=== PATIENT | male | born 1980 | race Caucasian/White ===

== ENCOUNTER 2021-04-24 13:32 | Outpatient (REF) | payer OTHER, SELFPAY ==
[2021-04-24 14:38] LABS: Baso%MD 0.5 %; Eos%MD 0.9 %; Hemoglobin 15.3 g/dl (14.0-18.0); IG%MD 1.2 %; Lymph%MD 36.2 %; Mean Corpuscular HGB Conc 35.6 g/dl (31.0-36.0); Mean Corpuscular Hemoglobin 32.2 pg (27.0-33.0); Mean Corpuscular Volume 90.5 fL (80-98); Mean Platelet Volume 8.9 fL (9.4-12.4); Mono%MD 9.2 %; Platelet Count 269 X10*3/uL (160-400); Red Blood Count 4.75 X10*6/uL (4.60-5.80); Red Cell Distribution Width 11.9 % (11.0-16.0); White Blood Count 6.6 X10*3/uL (4.8-10.8)
[2021-04-24 15:18] LABS: Alanine Aminotransferase 111 U/L (0-40); Albumin Level 3.9 g/dL (3.5-5.0); Alkaline Phosphatase 79 U/L (39-117); Anion Gap 11 (12-20); Aspartate Amino Transferase 30 U/L (5-37); Bilirubin Direct 0.2 mg/dL (0.0-0.5); Bilirubin Total 0.2 mg/dL (0.0-1.0); Blood Urea Nitrogen 11 mg/dL (9-16); Calcium 9.1 mg/dL (8.4-10.2); Carbon Dioxide 29 mmol/L (22-29); Chloride 105 mmol/L (96-108); Cholesterol 140 mg/dL; Estimated Glomerular Filt Rate > 60; Glucose Random 114 mg/dL (60-115); HDL Cholesterol 30 mg/dL; LDL Cholesterol Calculated 87 mg/dl; Lipase 120 U/L (8-78); Potassium 4.5 mmol/L (3.3-5.1); Sodium 140 mmol/L (135-145); Total Protein 6.3 g/dL (6.5-8.0); Triglycerides 116 mg/dL
[2021-04-24 15:21] LABS: Band Neutrophils Percent 2 % (3-5); Lymphocytes Absolute Manual 1.1 X10*3/uL (0.6-4.8); Lymphocytes Percent Manual 17 % (20-40); Monocytes Absolute Manual 0.2 X10*3/uL (0.0-1.2); Monocytes Percent Manual 3 % (2-11); Neutrophils Absolute Manual 5.3 X10*3/uL (2.2-7.9); Neutrophils Percent Manual 78 % (45-73)
[2021-04-24 15:22] LABS: Platelet Estimate NORMAL (NORMAL); Platelet Morphology Comment NORMAL; RBC Morphology NORMAL
[2021-04-24 15:29] LABS: Thyroid Stimulating Hormone 0.46 uIU/mL (0.32-4.0)
[2021-04-24 17:53] LABS: Appearance Urine CLEAR; Color Urine YELLOW; Glucose Urine UA NEG (NEG); Leukocyte Esterase Urine NEG (NEG); Nitrite Urine NEG (NEG); Urine Blood NEG (NEG); Urine Ketones NEG (NEG); Urine Protein NEG (NEG-TRACE)
== END 2021-04-24 13:33 | disposition home or self-care (01) ==
LOC: HO.LAB 13:32
PROVIDERS: Absent Provider Physician Assistant; PCP Internal Medicine; Visit Provider Internal Medicine
DX: F41.1 Generalized anxiety disorder (principal); K85.90 Acute pancreatitis without necrosis or infection, unspecified
CPT/HCPCS: 36415; 80048; 80061; 80076; 81003; 83690; 84443; 85007; 85027

== ENCOUNTER 2021-06-09 07:52 | Outpatient (REF) | payer OTHER, SELFPAY ==
--- NOTE | ~2021-06-09 | US_ITS ---
EXAMINATION: US ABDOMEN COMPLETE CLINICAL INFORMATION: Abnormal levels of other serum enzymes COMPARISON: None TECHNIQUE: Real-time imaging of the abdominal viscera. FINDINGS: PANCREAS: Not visualized due to bowel gas. ABDOMINAL AORTA: The proximal, mid, and distal segments are normal in caliber. INFERIOR VENA CAVA: Visualized portions are normal. LIVER: Normal. The liver is normal in size. The liver contour is normal. Parenchymal echogenicity is normal. No focal hepatic lesion. There is no intrahepatic biliary duct dilatation seen. GALLBLADDER: Normal. The gallbladder is physiologically distended without evidence of stones, sludge, polyps, wall thickening or pericholecystic fluid. COMMON BILE DUCT: Normal in caliber measuring 0.2 cm in diameter. RIGHT KIDNEY: There is a 1 cm cyst in the upper pole. No hydronephrosis. No renal calculi or focal parenchymal lesions. The kidney measures 11 cm in maximum dimension. LEFT KIDNEY: Normal. No hydronephrosis. No renal calculi or focal parenchymal lesions. The kidney measures 11 cm in maximum dimension. SPLEEN: Normal. The spleen measures 11 cm in maximum dimension. FREE FLUID: None. US/US abdomen complete IMPRESSION: Limited visualization of the pancreas. Small right renal cyst.
== END 2021-06-09 07:53 | disposition home or self-care (01) ==
LOC: HO.US 07:52
PROVIDERS: PCP Internal Medicine; Visit Provider Internal Medicine
DX: R74.8 Abnormal levels of other serum enzymes (principal)
CPT/HCPCS: 76700

== ENCOUNTER → 2022-04-16 13:28 | Outpatient (BNVA) | payer OTHER, SELFPAY | PROVIDERS: PCP Internal Medicine; Visit Provider Nurse Practitioner Psychiatric/Mental Health | DX: Z51.81 Encounter for therapeutic drug level monitoring (principal); F10.10 Alcohol abuse, uncomplicated | CPT/HCPCS: 80305 ==

== ENCOUNTER 2023-02-18 13:18 | Outpatient (AMB) | payer OTHER, SELFPAY ==
--- NOTE | 2023-02-18 13:29 | MHC.PC.OV ---
Vital Signs 02/18/23 13:31 Height 5 ft 9 in Weight 222 lb 8 oz BMI 32.9 BP 130/78 Blood Pressure Location Lt brachial Position Sitting Pulse 90 Pulse Source Pulse Oximeter Pulse Oximetry (%) 97 Oxygen Delivery Method Room Air Intake Visit Reasons: Bilateral Hip pain/Request lab Intake Note: Patient is here today for bilateral hip pain. Requesting for lab order New Order Clerk Required: No Ice Cream Vendor: Not Required per policy Accompanied by: Self / Same As Patient Allergies kiwi [KIWI] Allergy (Unknown, Verified 02/18/23 13:31) ANAPHYLAXIS Tobacco use date assessed: 02/18/23 Dental Screening Dental Screen Date: 02/18/23 Did you have a dental visit in the last 12 months?: Yes Did you have a dental problem in the last 6 months where you did not have access to dental care?: No Was dental information given to patient?: Patient has dentist HPI Bilateral Hip pain/Request lab HPI Details 43-year-old male presents to the office for a sick visit. Patient reports stiffness and pain in both hips. Symptoms have been present for the past 3 months. Patient is an avid gym user. He noticed that when he would have weights in his arms, his hips would start hurting. There is stiffness in both his hips with difficulty stretching. 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 He also has acne on his back for the past few months. Was seen and a dermatology office, was given a cream which he could not apply to his back. [facility] Medical History Generalized anxiety disorder Obesity (BMI 30.0-34.9) Tobacco use disorder Surgical History No pertinent past surgical history Family History Father Mental health disorder Mother Mental health disorder Social History Household Members: Spouse and Children Housing: House Alcohol intake: current Alcohol intake frequency: 0-2 drinks per day Alcohol type: beer Patient Tobacco Use Status: Former Tobacco user Tobacco use type: Cigarette Cigarettes Per Day: 4 e-Cigarette/Vaping Use: Never Used Second Hand Smoke Exposure: Yes service: No Current occupational status: employed Cognitive needs: No Hearing needs: No Vision needs: Yes (glasses) Questionnaire PHQ-9 Over the last 2 weeks, how often have you been bothered by any of the following problems? 1. Little interest or pleasure in doing things: not at all 2. Feeling down, depressed, or hopeless: not at all 3. Trouble falling or staying asleep, or sleeping too much: not at all 4. Feeling tired or having little energy: not at all 5. Poor appetite or overeating: not at all 6. Feeling bad about yourself - or that you are a failure or have let yourself or your family down: not at all 7. Trouble concentrating on things, such as reading the newspaper or watching television: not at all 8. Moving or speaking so slowly that other people could have noticed. Or the opposite - being so fidgety or restless that you have been moving around a lot more than usual: not at all 9. Thoughts that you would be better off or of hurting yourself in some way: not at all Total score: 0 Depression Screening Interpretation: Negative Source: Developed by Drs. Guicho Saavedra, Francesca Aburto, Kendrick Lai and colleagues, with an educational raymond from [employer]. Thrive Questionnaire Date Thrive assessed: 02/18/23 I am a: Patient What is your living situation today?: I have a steady place to live Within the past 12 months, did the food you bought not last and you didn't have the money to get more?: Never true Within the past 12 months, did you worry whether your food would run out before you got money to buy more?: Never true Do you have trouble paying for medicines?: No Do you have trouble getting transportation to medical appointments?: No Do you have trouble paying your heating and electricity bill?: No Do you have trouble taking care of your child, family member or friend?: No Do you have trouble with day-to-day activities such as bathing, preparing meals, shopping, managing finances, etc.?: No Are you currently unemployed and looking for a job?: No Are you interested in more education?: No Currently or been in a relationship where the following occur: no concerns reported AUDIT C Alcohol Use Questionnaire (AUDIT-C) 1. How often do you have a drink containing alcohol?: 4 or more times a week 2. How many drinks containing alcohol do you have on a typical day when you are drinking?: 1 or 2 Total Score: 4 MAHENDRA-7 AMB Questionnaire MAHENDRA-7 Date MAHENDRA - 7 assessed: 02/18/23 Feeling nervous, anxious, or on edge: 3 = Nearly every day Not being able to stop or control worryin = Several days Worrying too much about different things: 1 = Several days Trouble relaxin = Several days Being so restless that it is hard to sit still: 0 = Not at all Becoming easily annoyed or irritable: 0 = Not at all Feeling afraid as if something awful might happen: 0 = Not at all Total MAHENDRA-7 score (0-4 normal; 5-9 mild; 10-14 moderate; 15-21 severe): 6 Source: Developed by Drs. Guicho Saavedra, Francesca Aburto, Kendrick Lai and colleagues, with an educational raymond from [employer]. Physical exam (Primary Care) Vital Signs: Last Vital Signs Pulse 90 02/18/23 13:31 BP 130/78 02/18/23 13:31 Pulse Ox 97 02/18/23 13:31 Oxygen Delivery Method Room Air 02/18/23 13:31 BMI result Body Mass Index 32.9 Tobacco/Smoking Status: Tobacco use Status Tobacco use date assessed 02/18/23 02/18/23 13:36 Patient Tobacco Use Status Former Tobacco user 02/18/23 13:36 Tobacco use type Cigarette 02/18/23 13:36 e-Cigarette/Vaping Use Never Used 02/18/23 13:36 PHQ-9: PHQ-9 Score PHQ-9: Total score 0 02/18/23 13:36 Depression Screening Interpretation: Negative Thrive Assessment: Date of Thrive Assessment Date Thrive assessed 02/18/23 02/18/23 13:36 Currently or been in a relationship where the following occur: no concerns reported Const General: cooperative, healthy appearing and comfortable HENMT Head: Yes normal to inspection and Yes atraumatic Eyes General: appearance normal, both eyes and all related structures Neck Neck: Yes normal visual inspection and Yes full ROM Chest Chest palpation & inspection: normal inspection of the chest Resp Effort & Inspection: normal respiratory effort Auscultation: clear to auscultation bilaterally Cardio Jugular venous distension: no JVD Palpation: normal PMI Rate: regular rate Heart sounds: S1 normal heart sound present and S2 normal heart sound present GI Palpation (GI): Soft to palpation and No hepatosplenomegaly present Skin Other: Back cystic acne present. Extrem General: Yes normal to inspection and Yes full ROM Assessment and Plan Assessment & Plan (1) Myalgia: Code(s): M79.10 - Myalgia, unspecified site Plan: Trial of meloxicam and cyclobenzaprine called in. Physical therapy ordered. X-rays of right and left hip ordered. (2) Cystic acne: Code(s): L70.0 - Acne vulgaris Plan: Minocycline added to the regimen. Orders: Orders Complete Blood Count no Diff Today M79.10 - Myalgia, unspecified site Erythrocyte Sedimentation Rate Today M79.10 - Myalgia, unspecified site Basic Metabolic Panel Today M79.10 - Myalgia, unspecified site Lyme IgG/IgM w/reflex to WB Today M79.10 - Myalgia, unspecified site Thyroid Stimulating Hormone Today M79.10 - Myalgia, unspecified site Liver Panel Today M79.10 - Myalgia, unspecified site PT Evaluation and Treatment Today M79.10 - Myalgia, unspecified site XR hip LT min 2V Today M79.10 - Myalgia, unspecified site XR hip RT min 2V Today M79.10 - Myalgia, unspecified site Medications: New meloxicam 15 mg PO DAILY 14 tabs 0RF cyclobenzaprine 10 mg PO BEDTIME 14 tabs 0RF minocycline 100 mg PO Q12H 60 tabs 0RF Coding Level of Care Code Est Pt Level 4 (03192) Diagnoses Myalgia M79.10 Cystic acne L70.0
[2023-02-18 13:31] VITALS: BP 130/78; PULSE 90; O2SAT 97; BMI 32.9
== END 2023-02-18 13:52 | disposition home or self-care (01) ==
PROVIDERS: PCP Internal Medicine; Visit Provider Internal Medicine
DX: M79.10 Myalgia, unspecified site (principal); L70.0 Acne vulgaris
CPT/HCPCS: 99214

== ENCOUNTER 2023-02-24 07:59 | Outpatient (REF) | payer OTHER, SELFPAY ==
--- NOTE | ~2023-02-24 | XR_ITS ---
EXAMINATION: XR BILATERAL HIPS WITH AP PELVIS CLINICAL INFORMATION: Myalgia. COMPARISON: None available. TECHNIQUE: AP view of the pelvis and AP and frog-leg lateral views of each hip were obtained. FINDINGS: No acute fracture. There is a tiny accessory ossification center seen lateral to the left acetabular roof. A small benign bone island is noted within the right femoral head. Hip joint spaces are maintained. Alignment is anatomic. Sacroiliac joints and pubic symphysis are normal. No abnormal soft tissue calcifications. XR/XR hip BI w PEL1V IMPRESSION: Unremarkable pelvis and bilateral hips.
[2023-02-24 09:26] LABS: Hematocrit 42.7 % (42.0-52.0); Hemoglobin 14.9 g/dl (14.0-18.0); Mean Corpuscular HGB Conc 34.9 g/dl (31.0-36.0); Mean Corpuscular Hemoglobin 31.9 pg (27.0-33.0); Mean Corpuscular Volume 91.4 fL (80.0-98.0); Mean Platelet Volume 8.9 fL (9.4-12.4); Platelet Count 224 X10*3/uL (160-400); Red Blood Count 4.67 X10*6/uL (4.60-5.80); Red Cell Distribution Width 12.6 % (11.0-16.0)
[2023-02-24 10:05] LABS: Erythrocyte Sedimentation Rate 2 MM/HR (0-15)
[2023-02-24 11:19] LABS: Alanine Aminotransferase 22 U/L (0-40); Albumin Level 4.1 g/dL (3.5-5.0); Alkaline Phosphatase 47 U/L (39-117); Anion Gap 14 (12-20); Aspartate Amino Transferase 22 U/L (5-37); Bilirubin Direct 0.4 mg/dL (0.0-0.5); Blood Urea Nitrogen 17 mg/dL (9-16); Calcium 9.4 mg/dL (8.4-10.2); Carbon Dioxide 26 mmol/L (22-29); Chloride 108 mmol/L (96-108); Estimated Glomerular Filt Rate > 60; Glucose Random 101 mg/dL (60-115); Potassium 5.1 mmol/L (3.3-5.1); Sodium 143 mmol/L (135-145); Thyroid Stimulating Hormone 1.06 uIU/mL (0.32-4.0); Total Protein 6.5 g/dL (6.5-8.0)
[2023-02-26 03:27] LABS: Lyme Abs Screen <0.90 index
== END 2023-02-24 08:00 | disposition home or self-care (01) ==
LOC: HO.LAB 07:59
PROVIDERS: PCP Internal Medicine; Visit Provider Internal Medicine
DX: M79.10 Myalgia, unspecified site (principal)
CPT/HCPCS: 36415; 73521; 80048; 80076; 84443; 85027; 85652; 86617; 86618

== ENCOUNTER 2023-03-18 13:11 | Outpatient (AMB) | payer OTHER, SELFPAY ==
--- NOTE | 2023-03-18 13:14 | A.OFFPC_ITS ---
Vital Signs 03/18/23 13:15 Height 5 ft 9 in Weight 225 lb 4 oz BMI 33.3 BP 100/64 Blood Pressure Location Lt brachial Position Sitting Pulse 94 Pulse Source Pulse Oximeter Pulse Oximetry (%) 96 Oxygen Delivery Method Room Air Intake Visit Reasons: 4 Weeks f/u Intake Note: Patient is here to follow up on cystic acne, and myalgia. Software Quality Analyst Required: No Ab Initio Etl Developer: Not Required per policy Accompanied by: Self / Same As Patient Allergies kiwi [KIWI] Allergy (Unknown, Verified 03/18/23 13:33) ANAPHYLAXIS Medication List - Last Reconciled 03/18/23 by Sudeep Jeffery MD citalopram 20 mg PO DAILY doxycycline hyclate 100 mg PO BID 30 days meloxicam 15 mg PO DAILY Tobacco use date assessed: 03/18/23 HPI 4 Weeks f/u HPI Details 43-year-old male presents to the office for a follow-up visit. Patient is had some improvement with the stiffness in the hips. Continues to have stiffness behind the knees. He believes the cyclobenzaprine is not of much help. Meloxicam relieved the pain. Cystic acne improved with the antibiotics but new lesions are developing. [facility] Medical History Generalized anxiety disorder Obesity (BMI 30.0-34.9) Tobacco use disorder Surgical History No pertinent past surgical history Family History Father Mental health disorder Mother Mental health disorder Social History Household Members: Spouse and Children Housing: House Alcohol intake: current Alcohol intake frequency: 0-2 drinks per day Alcohol type: beer Patient Tobacco Use Status: Former Tobacco user Tobacco use type: Cigarette Cigarettes Per Day: 4 e-Cigarette/Vaping Use: Never Used Second Hand Smoke Exposure: Yes service: No Current occupational status: employed Cognitive needs: No Hearing needs: No Vision needs: Yes (glasses) Questionnaire Thrive Questionnaire Date Thrive assessed: 02/18/23 MAHENDRA-7 AMB Questionnaire MAHENDRA-7 Date MAHENDRA - 7 assessed: 02/18/23 Source: Developed by Drs. Guicho Saavedra, Francesca Aburto, Kendrick Lai and colleagues, with an educational raymond from [employer]. Physical exam (Primary Care) Vital Signs: Last Vital Signs Pulse 94 03/18/23 13:15 BP 100/64 03/18/23 13:15 Pulse Ox 96 03/18/23 13:15 Oxygen Delivery Method Room Air 03/18/23 13:15 BMI result Body Mass Index 33.3 Tobacco/Smoking Status: Tobacco use Status Tobacco use date assessed 03/18/23 03/18/23 13:21 Patient Tobacco Use Status Former Tobacco user 03/18/23 13:21 Tobacco use type Cigarette 03/18/23 13:21 e-Cigarette/Vaping Use Never Used 03/18/23 13:21 Thrive Assessment: Date of Thrive Assessment Date Thrive assessed 02/18/23 03/18/23 13:21 Const General: cooperative, healthy appearing and comfortable HENVA Head: Yes normal to inspection and Yes atraumatic Eyes General: appearance normal, both eyes and all related structures Neck Neck: Yes normal visual inspection and Yes full ROM Chest Chest palpation & inspection: normal inspection of the chest and crepitus Resp Effort & Inspection: normal respiratory effort Auscultation: clear to auscultation bilaterally Cardio Jugular venous distension: no JVD Palpation: normal PMI Rate: regular rate Heart sounds: S1 normal heart sound present and S2 normal heart sound present GI Palpation (GI): Soft to palpation, Tenderness to palpation present (GI) and No hepatosplenomegaly present Skin Other: Back: Most of the acne lesions are fading. New erythematous nodular lesions developing. Extrem General: Yes normal to inspection and Yes full ROM Assessment and Plan Assessment & Plan (1) Cystic acne: Code(s): L70.0 - Acne vulgaris Plan: Continue the antibiotics. A dermatology appointment will be requested. He will be a candidate for Accutane. (2) Bilateral hip pain: Code(s): M25.551 - Pain in right hip; M25.552 - Pain in left hip Plan: Physical therapy will be requested. Coding Level of Care Code Est Pt Level 4 (56253) Diagnoses Cystic acne L70.0 Bilateral hip pain M25.551; M25.552
[2023-03-18 13:15] VITALS: BP 100/64; PULSE 94; O2SAT 96; BMI 33.3
== END 2023-03-18 15:51 | disposition home or self-care (01) ==
PROVIDERS: PCP Internal Medicine; Visit Provider Internal Medicine
DX: L70.0 Acne vulgaris (principal); M25.551 Pain in right hip; M25.552 Pain in left hip
CPT/HCPCS: 99214

== ENCOUNTER 2023-09-18 10:17 | Emergency (ER) | payer OTHER, SELFPAY ==
[2023-09-18 10:23] VITALS: BP 107/71; PULSE 80; RESP 18; TEMP 36.6; O2SAT 98; BMI 32.5
--- NOTE | 2023-09-18 10:59 | ED.BACK ---
HPI - Back Pain/Injury General Chief Complaint: Back Pain/Injury Stated Complaint: back pain Time Seen by Provider: 09/18/23 10:37 Source: patient Mode of arrival: ambulatory Limitations: no limitations History of Present Illness HPI Narrative: 43-year-old male with no known medical history presents to the ER with complaints of right lower back pain with radiation down the right leg for the last 2 days. Patient denies any known falls or injuries but does recall lifting or cycling been which was empty prior to the pain beginning. Denies any associated numbness or tingling of the extremity. No numbness in the groin. No bowel or bladder incontinence. No fevers or chills. He is taking ibuprofen and using heat with continued symptoms Related Data Previous Rx's Medication Instructions Recorded citalopram 20 mg tablet 20 mg PO DAILY #60 tabs 09/18/22 meloxicam 15 mg tablet 15 mg PO DAILY #14 tabs 02/18/23 doxycycline hyclate 100 mg capsule 100 mg PO BID 30 days #60 caps 02/22/23 cyclobenzaprine 10 mg tablet 10 mg PO TID PRN muscle spasm #15 09/18/23 tabs lidocaine 5 % topical patch 1 patch topical DAILY #15 ea 09/18/23 (Lidoderm) prednisone 20 mg tablet 40 mg (2 x 20 mg) PO DAILY #10 tabs 09/18/23 Allergies Allergy/AdvReac Type Severity Reaction Status Date / Time kiwi [KIWI] Allergy Unknown ANAPHYLAXIS Verified 09/18/23 10:22 Review of Systems Review of Systems: Yes all other systems are reviewed and are negative Constitutional: Constitutional: Reports no additional constitutional complaints, Denies body ache(s), Denies chills, Denies fever(s), Denies headache(s) and Denies weakness Eyes: Eyes: Reports no additional eye complaints and Denies change in vision ENT: Reports system reviewed and no additional complaints, except as documented, Denies dizziness, Denies headache(s), Denies nasal congestion, Denies nasal discharge and Denies neck pain Cardiovascular: Cardiovascular: Reports no additional cardiovascular complaints, Denies chest pain, Denies leg edema and Denies dyspnea Respiratory: Respiratory: Reports no additional respiratory complaints, Denies cough and Denies dyspnea Gastrointestinal: Gastrointestinal: Reports no additional gastrointestinal complaints, Denies abdominal pain, Denies diarrhea, Denies nausea and Denies vomiting Genitourinary: Genitourinary: Denies urinary incontinence Musculoskeletal: Musculoskeletal: Reports no additional musculoskeletal complaints, Reports back pain, Denies arthralgias, Denies joint swelling, Denies neck pain, Denies numbness and Denies tingling Integumentary/Breasts: Skin/Breast: Reports system reviewed and no additional complaints, except as docu and Denies rash Neurologic: Reports system reviewed and no additional complaints, except as documented, Denies Abnormal speech present, Denies dizziness, Denies headache(s), Denies numbness, Denies tingling and Denies weakness PMFSH Past Medical History Attestation statement: The following information was validated with the patient. Source: old records reviewed and nursing notes reviewed Medical History Obesity (BMI 30.0-34.9) Tobacco use disorder Generalized anxiety disorder Surgical History No pertinent past surgical history Family History Family History Father Mental health disorder Mother Mental health disorder Social History Social History Household Members: Spouse and Children Housing: House Alcohol intake: current Alcohol intake frequency: 0-2 drinks per day Alcohol type: beer Patient Tobacco Use Status: Former Tobacco user Tobacco use type: Cigarette Cigarettes Per Day: 4 e-Cigarette/Vaping Use: Never Used Second Hand Smoke Exposure: Yes Advance Directives: No Advance Directives Information Provided: No service: No Current occupational status: employed Cognitive needs: No Hearing needs: No Vision needs: Yes (glasses) Physical Exam Vital Signs: Vital Signs: Last Vital Signs Temp 97.9 F 09/18/23 10:23 Pulse 80 09/18/23 10:23 Resp 18 09/18/23 10:23 BP 107/71 09/18/23 10:23 Pulse Ox 98 09/18/23 10:23 O2 Del Method Room Air 09/18/23 10:23 BMI result Body Mass Index 32.5 Const: General: cooperative, healthy appearing, comfortable and no acute distress Orientation/consciousness: patient oriented x3 Limitations: no limitations HEENT: Head: Yes normal to inspection Ears: hearing grossly normal bilaterally General nose exam: Normal external nose present Face and sinus: Yes normal facial exam Mouth: Normal oral and palatal mucosa present Throat: Yes posterior oropharynx normal Eyes: General: appearance normal, both eyes and all related structures Pupils: Equal, round and reactive pupils present Neck: Neck: Yes normal visual inspection Chest: Chest palpation & inspection: normal inspection of the chest Resp: Effort & Inspection: normal respiratory effort Auscultation: clear to auscultation bilaterally Cardio: Rate: regular rate Rhythm: regular rhythm Peripheral pulses: Peripheral pulses 2+ throughout GI: Inspection: Yes normal to inspection Palpation (GI): Soft to palpation and nontender Auscultation: normal bowel sounds Back/Spine/Pelvis: Other: there is no midline tenderness. There is tenderness the lumbar soft tissue on the right side which is worsened with flexion and extension of the lumbar spine Thoracic/Lumbar Spine: thoracic and lumbar spine normal to inspection Skin: General skin exam: no rashes or lesions noted Neuro: General: patient oriented x3, moves all extremities, no focal motor deficits and normal sensation to monofilament Cranial nerves: Yes Equal, round and reactive pupils present Cognition (Neuro): normal cognition Speech: No Abnormal speech present Gait exam (Neuro): Normal gait present Motor exam (neuro): 5/5 motor strength present throughout Sensory Exam: Normal double simultaneous stimulation for sensation Deep tendon reflexes (DTR's): Right patellar reflex intensity grade: 2+ and Left patellar reflex intensity grade: 2+ Extrem: General: Yes normal to inspection Medical Decision Making Medical Decision Making MDM Narrative: 43-year-old male with no known medical history presents to the ER with complaints of right lower back pain with radiation down the right leg for the last 2 days. Patient denies any known falls or injuries but does recall lifting or cycling been which was empty prior to the pain beginning. Denies any associated numbness or tingling of the extremity. No numbness in the groin. No bowel or bladder incontinence. No fevers or chills. He is taking ibuprofen and using heat with continued symptoms normal neuro exam with no focal neurological deficits or red flag symptoms Will treat with recommendations to continue NSAIDs, muscle relaxants, medicated patches and prednisone Differential Diagnosis Differential Diagnoses: The differential diagnosis associated with the presentation includes lumbar radiculopathy low suspicion for fracture, malignancy, cord compression, cauda equina, epidural abscess Admission/Observation Consideration of admission/observation: Escalation of care including admission/observation considered low suspicion for fracture, malignancy, cord compression, cauda equina, epidural abscess requiring urgent imaging, neurosurgery consultation Tests considered The following testing was considered but not selected: low suspicion for fracture, malignancy, cord compression, cauda equina, epidural abscess requiring urgent imaging Prescription Management I considered prescription management with: Pain Medication Discharge Plan Discharge Clinical Impression: Lumbar radiculopathy Patient Disposition: Home, Self-Care Instructions: Lumbar Radiculopathy (ED) Additional Instructions: heat or ice Gentle stretching No heavy lifting or bending Continue ibuprofen If having continued symptoms after 5-7 days I would recommend that you follow up outpatient with primary care doctor Return for any incontinence of urine or stool, numbness in the groin, fevers or chills Prescriptions: New prednisone 20 mg tablet 40 mg PO DAILY Qty: 10 0RF cyclobenzaprine 10 mg tablet 10 mg PO TID PRN (Reason: muscle spasm) Qty: 15 0RF lidocaine [Lidoderm] 5 % adhesive patch,medicated 1 patch topical DAILY Qty: 15 0RF Rx Instructions: leave on most painful area for up to 12 hrs No Action citalopram 20 mg tablet 20 mg PO DAILY Qty: 60 0RF doxycycline hyclate 100 mg capsule 100 mg PO BID 30 Days Qty: 60 0RF meloxicam 15 mg tablet 15 mg PO DAILY Qty: 14 0RF Referrals: Sudeep Jeffery MD [Primary Care Provider] - 1 week Stand Alone Forms: Work/School Release
== END 2023-09-18 11:25 | disposition home or self-care (01) ==
PROVIDERS: Emergency Provider Emergency Medicine; PCP Internal Medicine
DX: M54.16 Radiculopathy, lumbar region (principal); M54.50 Low back pain, unspecified
CPT/HCPCS: 99283

== ENCOUNTER 2023-11-23 10:06 | Outpatient (AMB) | payer OTHER, SELFPAY ==
--- NOTE | 2023-11-23 10:43 | MHC.PC.OV ---
Vital Signs 11/23/23 10:46 Height 5 ft 9 in Weight 228 lb BMI 33.7 BP 124/72 Blood Pressure Location Rt brachial Position Sitting Pulse 73 Pulse Source Pulse Oximeter Pulse Oximetry (%) 97 Oxygen Delivery Method Room Air Intake Visit Reasons: ED Intake Note: Patient is here to follow up on ED. 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 per policy Accompanied by: Self / Same As Patient Allergies kiwi [KIWI] Allergy (Unknown, Verified 11/24/23 08:40) ANAPHYLAXIS Medication List - Last Reconciled 11/24/23 by Sudeep Jeffery MD citalopram 20 mg PO DAILY lidocaine 5% (Lidoderm) 1 patch topical DAILY sildenafil (Viagra) 50 mg PO DAILY PRN Tobacco use date assessed: 11/23/23 Dental Screening Dental Screen Date: 11/23/23 Did you have a dental visit in the last 12 months?: Yes Did you have a dental problem in the last 6 months where you did not have access to dental care?: No Was dental information given to patient?: Patient has dentist HPI ED HPI Details 43 yr old male presents to the office to discuss his medical condition. He is experiencing erectile dysfunction. Unable to maintain erections over longer duration. , heterosexual, single partner, does not use protection. No recent stresses. Good interpersonal relationships with his . Once a month sexual activity. Saw the manager car for cystic Acne. Does not like the topical preparations provided by them. Wants systemic therapy and would like to get a referral elsewhere. Depression symptoms are stable [facility] Medical History (Updated 11/24/23 @ 08:45 by Sudeep Jeffery MD) Cystic acne Obesity (BMI 30.0-34.9) Tobacco use disorder Generalized anxiety disorder Surgical History No pertinent past surgical history Family History Father Mental health disorder Mother Mental health disorder Social History Household Members: Spouse and Children Housing: House Alcohol intake: current Alcohol intake frequency: a few times a week Alcohol type: beer Patient Tobacco Use Status: Former Tobacco user Tobacco use type: Cigarette Cigarettes Per Day: 4 e-Cigarette/Vaping Use: Never Used Second Hand Smoke Exposure: Yes service: No Current occupational status: employed Cognitive needs: No Hearing needs: No Vision needs: Yes (glasses) Questionnaire PHQ-9 Over the last 2 weeks, how often have you been bothered by any of the following problems? 1. Little interest or pleasure in doing things: not at all 2. Feeling down, depressed, or hopeless: not at all 3. Trouble falling or staying asleep, or sleeping too much: not at all 4. Feeling tired or having little energy: not at all 5. Poor appetite or overeating: not at all 6. Feeling bad about yourself - or that you are a failure or have let yourself or your family down: not at all 7. Trouble concentrating on things, such as reading the newspaper or watching television: not at all 8. Moving or speaking so slowly that other people could have noticed. Or the opposite - being so fidgety or restless that you have been moving around a lot more than usual: not at all 9. Thoughts that you would be better off or of hurting yourself in some way: not at all Total score: 0 Depression Screening Interpretation: Negative Depression Screening Done: Yes Source: Developed by Drs. Guihco Saavedra, Francesca Aburto, Kendrick Lai and colleagues, with an educational raymond from [employer]. Thrive Questionnaire Date Thrive assessed: 11/23/23 I am a: Patient What is your living situation today?: I have a steady place to live Within the past 12 months, did the food you bought not last and you didn't have the money to get more?: Never true Within the past 12 months, did you worry whether your food would run out before you got money to buy more?: Never true Do you have trouble paying for medicines?: No Do you have trouble getting transportation to medical appointments?: No Do you have trouble paying your heating and electricity bill?: No Do you have trouble taking care of your child, family member or friend?: No Do you have trouble with day-to-day activities such as bathing, preparing meals, shopping, managing finances, etc.?: No Are you currently unemployed and looking for a job?: No Are you interested in more education?: No Currently or been in a relationship where the following occur: no concerns reported THRIVE Score: 0 AUDIT C Alcohol Use Questionnaire (AUDIT-C) 1. How often do you have a drink containing alcohol?: 2-3 times a week 2. How many drinks containing alcohol do you have on a typical day when you are drinking?: 1 or 2 Total Score: 3 MAHENDRA-7 AMB Questionnaire MAHENDRA-7 Date MAHENDRA - 7 assessed: 11/23/23 Feeling nervous, anxious, or on edge: 0 = Not at all Not being able to stop or control worryin = Not at all Worrying too much about different things: 0 = Not at all Trouble relaxin = Not at all Being so restless that it is hard to sit still: 0 = Not at all Becoming easily annoyed or irritable: 0 = Not at all Feeling afraid as if something awful might happen: 0 = Not at all Total MAHENDRA-7 score (0-4 normal; 5-9 mild; 10-14 moderate; 15-21 severe): 0 Source: Developed by Drs. Guicho Saavedra, Francesca Aburto, Kendrick Lai and colleagues, with an educational raymond from [employer]. Physical exam (Primary Care) Vital Signs: Last Vital Signs Pulse 73 11/23/23 10:46 BP 124/72 11/23/23 10:46 Pulse Ox 97 11/23/23 10:46 Oxygen Delivery Method Room Air 11/23/23 10:46 BMI result Body Mass Index 33.7 BMI Assessment/Plan discussion: High (one pound per week weight loss suggested.) BMI High, discussed plan: lifestyle, weight reduction, dietary and physical activity Tobacco/Smoking Status: Tobacco use Status Tobacco use date assessed 11/23/23 11/23/23 10:54 Patient Tobacco Use Status Former Tobacco user 11/23/23 10:54 Tobacco use type Cigarette 11/23/23 10:54 e-Cigarette/Vaping Use Never Used 11/23/23 10:54 PHQ-9: PHQ-9 Score PHQ-9: Total score 0 11/23/23 10:54 Depression Screening Interpretation: Negative Thrive Assessment: Date of Thrive Assessment Date Thrive assessed 11/23/23 11/23/23 10:54 Currently or been in a relationship where the following occur: no concerns reported Const General: cooperative and healthy appearing Nutritional Appearance: well nourished Orientation/consciousness: patient oriented x3 Limitations: no limitations HENMT Head: Yes normal to inspection Eyes General: appearance normal, both eyes and all related structures Neck Neck: Yes normal visual inspection Chest Chest palpation & inspection: normal palpation of entire chest wall Resp Effort & Inspection: normal respiratory effort Neuro General: patient oriented x3 Assessment and Plan Assessment & Plan (1) Cystic acne: Code(s): L70.0 - Acne vulgaris Plan: A new dermatology appt requested. (2) Generalized anxiety disorder: Code(s): F41.1 - Generalized anxiety disorder Plan: Continue the SSRI. (3) Erectile dysfunction: Code(s): N52.9 - Male erectile dysfunction, unspecified Plan: Viagra added to the regimen Medications: New sildenafil (Viagra) administer 30 minutes to 4 hours before activity 50 mg PO DAILY PRN 8 tabs 0RF sexual activity Coding Level of Care Code Est Pt Level 4 (13538) Diagnoses Cystic acne L70.0 Generalized anxiety disorder F41.1 Erectile dysfunction N52.9
[2023-11-23 10:46] VITALS: BP 124/72; PULSE 73; O2SAT 97; BMI 33.7
== END 2023-11-23 13:53 | disposition home or self-care (01) ==
PROVIDERS: PCP Internal Medicine; Visit Provider Internal Medicine
DX: L70.0 Acne vulgaris (principal); F41.1 Generalized anxiety disorder; N52.9 Male erectile dysfunction, unspecified
CPT/HCPCS: 99214

== ENCOUNTER 2024-04-24 08:14 | Outpatient (AMB) | payer OTHER, SELFPAY ==
[2024-04-24 08:17] VITALS: BP 118/78; PULSE 96; O2SAT 97; BMI 34.1
--- NOTE | 2024-04-24 08:17 | MHC.PC.OV ---
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: No Accompanied by: Self / Same As Patient Allergies kiwi [KIWI] Allergy (Unknown, Verified 04/24/24 09:12) ANAPHYLAXIS Medication List - Last Reconciled 04/24/24 by Sudeep Jeffery MD citalopram 20 mg PO DAILY lidocaine 5% (Lidoderm) 1 patch topical DAILY sildenafil (Viagra) 50 mg PO DAILY PRN Tobacco use date assessed: 11/23/23 Dental Screening Dental Screen Date: 11/23/23 [facility] Medical History (Updated 11/24/23 @ 08:45 by Sudeep Jeffery MD) Cystic acne Obesity (BMI 30.0-34.9) Tobacco use disorder Generalized anxiety disorder Surgical History No pertinent past surgical history Family History Father Mental health disorder Mother Mental health disorder Social History Household Members: Spouse and Children Housing: House Alcohol intake: current Alcohol intake frequency: a few times a week Alcohol type: beer Patient Tobacco Use Status: Former Tobacco user Tobacco use type: Cigarette Cigarettes Per Day: 4 e-Cigarette/Vaping Use: Never Used Second Hand Smoke Exposure: Yes service: No Current occupational status: employed Current occupational exposures/hazards: No Cognitive needs: No Hearing needs: No Vision needs: Yes (glasses) Questionnaire PHQ-9 Over the last 2 weeks, how often have you been bothered by any of the following problems? 1. Little interest or pleasure in doing things: not at all 2. Feeling down, depressed, or hopeless: not at all 3. Trouble falling or staying asleep, or sleeping too much: not at all 4. Feeling tired or having little energy: not at all 5. Poor appetite or overeating: not at all 6. Feeling bad about yourself - or that you are a failure or have let yourself or your family down: not at all 7. Trouble concentrating on things, such as reading the newspaper or watching television: several days 8. Moving or speaking so slowly that other people could have noticed. Or the opposite - being so fidgety or restless that you have been moving around a lot more than usual: not at all 9. Thoughts that you would be better off or of hurting yourself in some way: not at all Total score: 1 Depression Screening Interpretation: Negative Depression Screening Done: Yes Source: Developed by Drs. Guicho Saavedra, Francesca Aburto, Kendrick Lai and colleagues, with an educational raymond from [employer]. Thrive Questionnaire Date Thrive assessed: 11/23/23 I am a: Patient What is your living situation today?: I have a steady place to live Within the past 12 months, did the food you bought not last and you didn't have the money to get more?: I choose not to answer this question Within the past 12 months, did you worry whether your food would run out before you got money to buy more?: Never true Do you have trouble paying for medicines?: No Do you have trouble getting transportation to medical appointments?: No Do you have trouble paying your heating and electricity bill?: No Do you have trouble taking care of your child, family member or friend?: No Do you have trouble with day-to-day activities such as bathing, preparing meals, shopping, managing finances, etc.?: No Are you currently unemployed and looking for a job?: No Are you interested in more education?: No Please select the resources that you would like help with: None Currently or been in a relationship where the following occur: No concerns reported THRIVE Score: 0 AUDIT C Alcohol Use Questionnaire (AUDIT-C) 1. How often do you have a drink containing alcohol?: Monthly or less 2. How many drinks containing alcohol do you have on a typical day when you are drinking?: 1 or 2 3. How often do you have six or more drinks on one occasion?: Less than monthly Total Score: 2 MAHENDRA-7 AMB Questionnaire MAHENDRA-7 Date MAHENDRA - 7 assessed: 11/23/23 Feeling nervous, anxious, or on edge: 1 = Several days Not being able to stop or control worryin = Not at all Worrying too much about different things: 0 = Not at all Trouble relaxin = Not at all Being so restless that it is hard to sit still: 0 = Not at all Becoming easily annoyed or irritable: 0 = Not at all Feeling afraid as if something awful might happen: 0 = Not at all Total MAHENDRA-7 score (0-4 normal; 5-9 mild; 10-14 moderate; 15-21 severe): 1 Source: Developed by Drs. Guicho Saavedra, Francesca Aburto, Kendrick Lai and colleagues, with an educational raymond from [employer]. Physical exam (Primary Care) Vital Signs: Last Vital Signs Pulse 96 04/24/24 08:17 BP 118/78 04/24/24 08:17 Pulse Ox 97 04/24/24 08:17 Oxygen Delivery Method Room Air 04/24/24 08:17 Care Plan Goal for BP management: Blood pressure is in range. BMI result Body Mass Index 34.1 BMI Assessment/Plan discussion: High (1 lb per week weight loss suggested.) BMI High, discussed plan: lifestyle, weight reduction and dietary Tobacco/Smoking Status: Tobacco use Status Tobacco use date assessed 11/23/23 04/24/24 08:24 Patient Tobacco Use Status Former Tobacco user 04/24/24 08:24 Tobacco use type Cigarette 04/24/24 08:24 e-Cigarette/Vaping Use Never Used 04/24/24 08:24 PHQ-9: PHQ-9 Score PHQ-9: Total score 1 04/24/24 08:24 Depression Screening Interpretation: Negative Thrive Assessment: Date of Thrive Assessment Date Thrive assessed 11/23/23 04/24/24 08:24 Currently or been in a relationship where the following occur: No concerns reported Const General: cooperative and healthy appearing Nutritional Appearance: well nourished Orientation/consciousness: patient oriented x3 Limitations: no limitations HENMT Head: Yes normal to inspection Eyes General: appearance normal, both eyes and all related structures Neck Neck: Yes normal visual inspection Chest Chest palpation & inspection: normal palpation of entire chest wall Resp Effort & Inspection: normal respiratory effort Back/Spine/Pelvis Other: Skin: Healing acne lesions. Neuro General: patient oriented x3 Assessment and Plan Assessment & Plan (1) Cystic acne: Code(s): L70.0 - Acne vulgaris Plan: Patient did not keep the earlier appointment due to insurance issues. He would like to get another dermatology appointment. The same has been made. (2) Generalized anxiety disorder: Code(s): F41.1 - Generalized anxiety disorder Plan: Patient has not been regular with citalopram. Compliance has been urged. (3) Annual physical exam: Code(s): Z00.00 - Encounter for general adult medical examination without abnormal findings Plan: Blood work has been ordered. Will call with the results. Orders: Orders Complete Blood Count no Diff Today F41.1 - Generalized anxiety disorder, L70.0 - Acne vulgaris, Z00.00 - Encounter for general adult medical examination without abnormal findings Thyroid Stimulating Hormone Today F41.1 - Generalized anxiety disorder, L70.0 - Acne vulgaris, Z00.00 - Encounter for general adult medical examination without abnormal findings UA and rflx microscopic Today F41.1 - Generalized anxiety disorder, L70.0 - Acne vulgaris, Z00.00 - Encounter for general adult medical examination without abnormal findings Basic Metabolic Panel Today F41.1 - Generalized anxiety disorder, L70.0 - Acne vulgaris, Z00.00 - Encounter for general adult medical examination without abnormal findings Lipid Panel Today F41.1 - Generalized anxiety disorder, L70.0 - Acne vulgaris, Z00.00 - Encounter for general adult medical examination without abnormal findings Liver Panel Today F41.1 - Generalized anxiety disorder, L70.0 - Acne vulgaris, Z00.00 - Encounter for general adult medical examination without abnormal findings Referrals Dermatology Referral L70.0 - Acne vulgaris Medications: Refilled citalopram 20 mg PO DAILY 90 tabs 1RF Coding Level of Care Code Est Pt Prev Care 40-64y(69312) Diagnoses Cystic acne L70.0 Generalized anxiety disorder F41.1 Annual physical exam Z00.00
== END 2024-04-24 08:42 | disposition home or self-care (01) ==
PROVIDERS: PCP Internal Medicine; Visit Provider Internal Medicine
DX: L70.0 Acne vulgaris (principal); F41.1 Generalized anxiety disorder; Z00.00 Encounter for general adult medical examination without abnormal findings

== ENCOUNTER → 2024-04-24 08:14 | Outpatient (BNVA) | payer OTHER, SELFPAY | PROVIDERS: PCP Internal Medicine; Visit Provider Internal Medicine | DX: Z00.00 Encounter for general adult medical examination without abnormal findings (principal); L70.0 Acne vulgaris; F41.1 Generalized anxiety disorder | CPT/HCPCS: 96127 ==

== ENCOUNTER 2024-05-31 06:37 | Outpatient (REF) | payer OTHER, SELFPAY ==
[2024-05-31 07:46] LABS: Hematocrit 43.3 % (42.0-52.0); Hemoglobin 15.5 g/dl (14.0-18.0); Mean Corpuscular HGB Conc 35.8 g/dl (31.0-36.0); Mean Corpuscular Volume 89.5 fL (80.0-98.0); Platelet Count 220 X10*3/uL (160-400); Red Blood Count 4.84 X10*6/uL (4.60-5.80); Red Cell Distribution Width 12.6 % (11.0-16.0); White Blood Count 6.2 X10*3/uL (4.8-10.8)
[2024-05-31 08:01] LABS: Appearance Urine Clear; Color Urine Yellow; Glucose Urine UA Negative (Negative); Leukocyte Esterase Urine Negative (Negative); Nitrite Urine Negative (Negative); PH 5.5 (5.0-9.0); Specific Gravity - Urine 1.025 (1.005-1.025); Urine Blood Negative (Negative); Urine Ketones Negative (Negative); Urine Protein Negative (Neg-Trace)
[2024-05-31 08:18] LABS: Alanine Aminotransferase 29 U/L (0-40); Alkaline Phosphatase 47 U/L (39-117); Anion Gap 11 (12-20); Aspartate Amino Transferase 27 U/L (5-37); Bilirubin Direct 0.2 mg/dL (0.0-0.5); Bilirubin Total 0.7 mg/dL (0.0-1.0); Blood Urea Nitrogen 16 mg/dL (9-16); Calcium 9.1 mg/dL (8.4-10.2); Carbon Dioxide 25 mmol/L (22-29); Chloride 108 mmol/L (96-108); Cholesterol 155 mg/dL (<200); Estimated Glomerular Filt Rate > 60; Glucose Random 101 mg/dL (60-115); HDL Cholesterol 50 mg/dL (>40); LDL Cholesterol Calculated 88 mg/dL (<100); Sodium 140 mmol/L (135-145); Total Protein 6.4 g/dL (6.5-8.0); Triglycerides 85 mg/dL (<150)
[2024-05-31 08:38] LABS: Thyroid Stimulating Hormone 1.52 uIU/mL (0.32-4.0)
== END 2024-05-31 06:38 | disposition home or self-care (01) ==
LOC: HO.LAB 06:37
PROVIDERS: PCP Internal Medicine; Visit Provider Internal Medicine
DX: Z00.00 Encounter for general adult medical examination without abnormal findings (principal); L70.0 Acne vulgaris; F41.1 Generalized anxiety disorder
CPT/HCPCS: 36415; 80048; 80061; 80076; 81003; 84443; 85027

== ENCOUNTER 2024-06-12 09:13 | Outpatient (REF) | payer OTHER, SELFPAY ==
[2024-06-13 08:58] LABS: Follicle Stimulating Hormone 3.5 mIU/mL (1.4-12.8); Lutenizing Hormone 3.3 mIU/mL (1.5-9.3)
[2024-06-16 18:23] LABS: Testosterone, Free 63.8 pg/mL (35.0-155.0); Testosterone, Total 456 ng/dL (250-1100)
== END 2024-06-12 09:14 | disposition home or self-care (01) ==
LOC: HO.LAB 09:13
PROVIDERS: PCP Internal Medicine; Visit Provider Internal Medicine
DX: E29.1 Testicular hypofunction (principal)
CPT/HCPCS: 36415; 83001; 83002; 84402; 84403

== ENCOUNTER 2024-10-20 11:08 | Outpatient (REF) | payer OTHER, SELFPAY ==
[2024-10-20 12:14] LABS: MANUAL DIFF FLAG NO
[2024-10-20 12:28] LABS: Basophils Percent Auto 0.8 % (0-2); Eosinophils Percent Auto 0.6 % (0-4); Hematocrit 41.9 % (42.0-52.0); Hemoglobin 14.8 g/dl (14.0-18.0); Imm Gran Abs Auto 0.01 X10*3/uL (0.00-0.03); Imm Gran Pct Auto 0.2 % (0.0-0.4); Lymphocytes Absolute Auto 1.7 X10*3/uL (1.2-4.9); Lymphocytes Percent Auto 33.7 % (20-40); Mean Corpuscular HGB Conc 35.3 g/dl (31.0-36.0); Mean Corpuscular Hemoglobin 32.2 pg (27.0-33.0); Mean Corpuscular Volume 91.3 fL (80.0-98.0); Mean Platelet Volume 9.1 fL (9.4-12.4); Monocytes Absolute Auto 0.5 X10*3/uL (0.1-1.2); Monocytes Percent Auto 10.2 % (2-11); Neutrophils Absolute Auto 2.7 x10*3/uL (2.0-8.3); Neutrophils Percent Auto 54.5 % (45-73); Platelet Count 217 X10*3/uL (160-400); Red Blood Count 4.59 X10*6/uL (4.60-5.80); Red Cell Distribution Width 12.7 % (11.0-16.0)
[2024-10-20 12:43] LABS: Estimated Average Glucose 105 mg/dL; Hemoglobin A1c % 5.3 % (<6.0); Total Hemoglobin (HGBA1C) 3835.3638 umol/L
[2024-10-20 13:06] LABS: Erythrocyte Sedimentation Rate 2 MM/HR (0-15)
[2024-10-20 13:07] LABS: Alanine Aminotransferase 34 U/L (0-40); Albumin Level 4.2 g/dL (3.5-5.0); Alkaline Phosphatase 39 U/L (39-117); Anion Gap 7 (12-20); Aspartate Amino Transferase 32 U/L (5-37); Bilirubin Direct 0.2 mg/dL (0.0-0.5); Bilirubin Total 0.4 mg/dL (0.0-1.0); Blood Urea Nitrogen 14 mg/dL (9-16); C Reactive Protein < 0.04 mg/dL (< or = 0.50); Calcium 9.3 mg/dL (8.4-10.2); Carbon Dioxide 30 mmol/L (22-29); Chloride 107 mmol/L (96-108); Estimated Glomerular Filt Rate > 60; Glucose Random 100 mg/dL (60-115); Magnesium 1.8 mg/dL (1.6-2.6); Potassium 4.4 mmol/L (3.3-5.1); Sodium 140 mmol/L (135-145); Total Protein 6.5 g/dL (6.5-8.0)
[2024-10-20 13:12] LABS: TSH reflex Free T4 1.39 uIU/mL (0.32-4.0); Vitamin D 25-OH Total 27.1 ng/mL (>30)
[2024-10-20 13:27] LABS: Folate 9.5 ng/mL (> or = 4.0); Vitamin B12 494 pg/mL (200-900)
== END 2024-10-20 11:09 | disposition home or self-care (01) ==
LOC: HO.LAB 11:08
PROVIDERS: PCP Internal Medicine; Visit Provider Physician Assistant Medical
DX: R19.7 Diarrhea, unspecified (principal); Z76.0 Encounter for issue of repeat prescription; Z00.00 Encounter for general adult medical examination without abnormal findings; Z13.1 Encounter for screening for diabetes mellitus
CPT/HCPCS: 36415; 80053; 82248; 82306; 82607; 82746; 83036; 83735; 84443; 85025; 85652; 86140; 96127

== ENCOUNTER 2024-10-20 11:08 | Outpatient (AMB) | payer OTHER, SELFPAY ==
--- NOTE | 2024-10-20 11:20 | A.OFFPC_ITS ---
Vital Signs 10/20/24 11:22 Height 5 ft 9 in Weight 227 lb 4 oz BMI 33.6 BP 120/70 Blood Pressure Location Lt brachial Position Sitting Pulse 80 Pulse Source Pulse Oximeter Temp 97.3 F Temp Source Temporal Artery Scan Pulse Oximetry (%) 97 Oxygen Delivery Method Room Air Intake Visit Reasons: Stomach pain/ GI referral Intake Note: Patient is here to follow up on Constant diarrhea, requesting for GI referral Marketing Compliance Manager Required: No Straight Line Edger: Not Required per policy Accompanied by: Self / Same As Patient Allergies kiwi [KIWI] Allergy (Unknown, Verified 10/20/24 11:38) ANAPHYLAXIS Medication List - Last Reconciled 10/20/24 by Marianne Beltran PA-C citalopram 20 mg PO DAILY cyclobenzaprine 10 mg PO BEDTIME lidocaine 5% (Lidoderm) 1 patch topical DAILY meloxicam 15 mg PO DAILY sildenafil (Viagra) 50 mg PO DAILY PRN Tobacco use date assessed: 10/20/24 Dental Screening Dental Screen Date: 10/20/24 Did you have a dental visit in the last 12 months?: Yes Did you have a dental problem in the last 6 months where you did not have access to dental care?: No Was dental information given to patient?: Patient has dentist HPI Stomach pain/ GI referral HPI Details 44-year-old male who is presenting to [facility] with concerns of diarrhea over the past 1-2 months. He reports anything he eats within 20 minutes he is having semi formed diarrhea. He reports he has a history of IBS and lactose intolerance although this is different from his normal IBS and lactose intolerant diarrhea. He reports he was on amoxicillin approximately a month and a half ago. He denies a history of C diff, black or bloody stools, mucousy or foul-smelling stools, recent weight gain or weight loss that was unintentional. Reports he has never had a colonoscopy. He denies any recent travel or sick contacts, others with similar symptoms, possible bad food exposure, fevers, chills, abdominal pain, back or flank pain, dysuria hematuria or any other symptoms complaints or concerns at this time. [facility] Medical History (Updated 10/20/24 @ 11:54 by Marianne Beltran PA-C) Medication refill Colon cancer screening Diarrhea Cystic acne Obesity (BMI 30.0-34.9) Tobacco use disorder Generalized anxiety disorder Surgical History No pertinent past surgical history Family History Father Mental health disorder Mother Mental health disorder Social History Household Members: Spouse and Children Housing: House Alcohol intake: current Alcohol intake frequency: a few times a week Alcohol type: beer Patient Tobacco Use Status: Former Tobacco user Tobacco use type: Cigarette Cigarettes Per Day: 4 e-Cigarette/Vaping Use: Never Used Second Hand Smoke Exposure: Yes service: No Current occupational status: employed Current occupational exposures/hazards: No Cognitive needs: No Hearing needs: No Vision needs: Yes (glasses) Questionnaire PHQ-9 Over the last 2 weeks, how often have you been bothered by any of the following problems? 1. Little interest or pleasure in doing things: not at all 2. Feeling down, depressed, or hopeless: not at all 3. Trouble falling or staying asleep, or sleeping too much: not at all 4. Feeling tired or having little energy: not at all 5. Poor appetite or overeating: not at all 6. Feeling bad about yourself - or that you are a failure or have let yourself or your family down: not at all 7. Trouble concentrating on things, such as reading the newspaper or watching television: not at all 8. Moving or speaking so slowly that other people could have noticed. Or the opposite - being so fidgety or restless that you have been moving around a lot more than usual: not at all 9. Thoughts that you would be better off or of hurting yourself in some way: not at all Total score: 0 Depression Screening Interpretation: Negative Depression Screening Done: Yes 61861 - PHQ-9 Billing: Yes Source: Developed by Drs. Guicho Saavedra, Francesca Aburto, Kendrick Lai and colleagues, with an educational raymond from [employer]. Thrive Questionnaire Date Thrive assessed: 10/20/24 I am a: Patient What is your living situation today?: I have a steady place to live Within the past 12 months, did the food you bought not last and you didn't have the money to get more?: I choose not to answer this question Within the past 12 months, did you worry whether your food would run out before you got money to buy more?: Never true Do you have trouble paying for medicines?: No Do you have trouble getting transportation to medical appointments?: No Do you have trouble paying your heating and electricity bill?: No Do you have trouble taking care of your child, family member or friend?: No Do you have trouble with day-to-day activities such as bathing, preparing meals, shopping, managing finances, etc.?: No Are you currently unemployed and looking for a job?: No Are you interested in more education?: No Please select the resources that you would like help with: None Currently or been in a relationship where the following occur: No concerns reported THRIVE Score: 0 AUDIT C Alcohol Use Questionnaire (AUDIT-C) 1. How often do you have a drink containing alcohol?: Monthly or less 2. How many drinks containing alcohol do you have on a typical day when you are drinking?: 1 or 2 3. How often do you have six or more drinks on one occasion?: Monthly Total Score: 3 Score Reviewed/Action Taken: No MAHENDRA-7 AMB Questionnaire MAHENDRA-7 Date MAHENDRA - 7 assessed: 10/20/24 Feeling nervous, anxious, or on edge: 0 = Not at all Not being able to stop or control worryin = Not at all Worrying too much about different things: 0 = Not at all Trouble relaxin = Not at all Being so restless that it is hard to sit still: 0 = Not at all Becoming easily annoyed or irritable: 0 = Not at all Feeling afraid as if something awful might happen: 0 = Not at all Total MAHENDRA-7 score (0-4 normal; 5-9 mild; 10-14 moderate; 15-21 severe): 0 Source: Developed by Drs. Guicho Saavedra, Francesca Aburto, Kendrick Lai and colleagues, with an educational raymond from [employer]. MAHENDRA-7 Assessment Billing MAHENDRA-7 Assessment Tool: MAHENDRA-7 Assessment 78794 Physical exam (Primary Care) Vital Signs: Last Vital Signs Temp 97.3 F 10/20/24 11:22 Pulse 80 10/20/24 11:22 BP 140/70 H 10/20/24 11:22 Pulse Ox 97 10/20/24 11:22 Oxygen Delivery Method Room Air 10/20/24 11:22 Care Plan Goal for BP management: <130/80 at goal BMI result Body Mass Index 33.6 Tobacco/Smoking Status: Tobacco use Status Tobacco use date assessed 10/20/24 10/20/24 11:28 Patient Tobacco Use Status Former Tobacco user 10/20/24 11:28 Tobacco use type Cigarette 10/20/24 11:28 e-Cigarette/Vaping Use Never Used 10/20/24 11:28 PHQ-9: PHQ-9 Score PHQ-9: Total score 0 10/20/24 11:28 Depression Screening Interpretation: Negative Thrive Assessment: Date of Thrive Assessment Date Thrive assessed 10/20/24 10/20/24 11:28 Currently or been in a relationship where the following occur: No concerns reported Const Other: Appearance: Alert. Oriented X3. No acute distress. Head: Normal external exam. Normocephalic. Atraumatic. Eyes: Conjunctiva and sclera normal. Eyelids normal. ENT: MMM. Normal voice. Neck: Normal inspection. Neck supple. FROM. No adenopathy. CVS: Normal heart rate and rhythm. Heart sound normal. Respiratory: No respiratory distress. Painless inspiration. Abdomen: Soft and nontender. Nondistended. No guarding. No rigidity. Bowel sounds normal in all 4 quadrants. No distention noted. No organomegaly noted. No visible injury noted. No rebound tenderness. Back: Full range of motion noted. Skin: Skin warm and dry. Normal skin color. Normal skin turgor. No rashes/lesions/lacerations noted. Extremities: Extremities exhibit normal range of motion and nontender. Neuro: Oriented X 3. Moving all extremities. Normal steady gait. No focal neuro deficits noted. Vascular: + radial pulses b/l. Normal cap refill. No cyanosis noted. Coding Level of Care Code Est Pt Level 4 (09509) Complex EM visit Add On G2211 Diagnoses Diarrhea R19.7 Colon cancer screening Z12.11 Medication refill Z76.0 Additional Codes PHQ-9 - 54571 - PHQ-9 Billing: Yes ([id number]) MAHENDRA-7 Assessment Billing - MAHENDRA-7 Assessment Tool: MAHENDRA-7 Assessment 99213 ([id number]) Assessment & Plan Assessment & Plan (1) Diarrhea: Code(s): R19.7 - Diarrhea, unspecified Category: Medical Plan: Patient with diarrhea for the past 1-2 months immediately after he eats any types of foods. Has history of IBS and lactose intolerance although different to his prior IBS and lactose intolerance flares/incidents. He denies recent travel or sick contacts or others with similar symptoms. Denies a history of C diff. Denies fevers, chills, abdominal or flank pain, black or bloody stools or any other symptoms related to this. Will obtain CBC, CMP, stool culture, C diff culture, H pylori test, magnesium level. Patient will also be referred to gastroenterology. Condition is stable continue to monitor. (2) Colon cancer screening: Code(s): Z12.11 - Encounter for screening for malignant neoplasm of colon Category: Medical Plan: Patient with history of IBS and lactose intolerant heavy irregular stools will refer to GI for further evaluation and management along with colon cancer screening. Condition is stable continue to monitor (3) Medication refill: Code(s): Z76.0 - Encounter for issue of repeat prescription Category: Medical Plan: Patient had medications refilled such as cyclobenzaprine, Lidoderm patches, me loxicam and Viagra. Plan Patient to have CBC, CMP, magnesium, stool culture done at this time. Patient be referred to gastroenterology for colon cancer screening Once labs, stool cultures are returned will call the patient with results and if patient needs any antibiotics at that time he will be prescribed them at that time. Will hold off on any antibiotics at this time. Patient understands agrees with this plan. Orders: Orders Complete Blood Count Auto Diff Today Z00.00 - Encounter for general adult medical examination without abnormal findings Magnesium Today Z00.00 - Encounter for general adult medical examination without abnormal findings H pylori Ag Stool Today R19.7 - Diarrhea, unspecified Giardia Ag Stool EIA Today R19.7 - Diarrhea, unspecified Chymotrypsin, Stool Today R19.7 - Diarrhea, unspecified Leukocytes Stool Qualitative Today R19.7 - Diarrhea, unspecified Liver Panel Today Z00.00 - Encounter for general adult medical examination without abnormal findings Erythrocyte Sedimentation Rate Today Z00.00 - Encounter for general adult medical examination without abnormal findings C Reactive Protein Today Z00.00 - Encounter for general adult medical examination without abnormal findings TSH reflex Free T4 Today Z00.00 - Encounter for general adult medical examination without abnormal findings Vitamin D 25-OH Total Today Z00.00 - Encounter for general adult medical examination without abnormal findings Hemoglobin A1c Today Z00.00 - Encounter for general adult medical examination without abnormal findings Comprehensive Met. Panel Today Z00.00 - Encounter for general adult medical examination without abnormal findings CDiff Gene PCR Today R10.9 - Unspecified abdominal pain, R19.7 - Diarrhea, unspecified Cyclospora & Isospora Stool Today R19.7 - Diarrhea, unspecified Vitamin B12 and Folate Today Z00.00 - Encounter for general adult medical examination without abnormal findings Referrals Gastroenterology Referral R19.7 - Diarrhea, unspecified, Z12.11 - Encounter for screening for malignant neoplasm of colon Medications: Refilled cyclobenzaprine 10 mg PO BEDTIME 30 tabs 1RF lidocaine 5% (Lidoderm) leave on most painful area for up to 12 hrs 1 patch topical DAILY 15 ea 3RF meloxicam 15 mg PO DAILY 30 tabs 1RF sildenafil (Viagra) administer 30 minutes to 4 hours before activity 50 mg PO DAILY PRN 8 tabs 1RF sexual activity
[2024-10-20 11:22] VITALS: BP 120/70; PULSE 80; TEMP 36.3; O2SAT 97; BMI 33.6
== END 2024-10-20 11:48 | disposition home or self-care (01) ==
LOC: HO.HMCH 11:09
PROVIDERS: PCP Internal Medicine; Visit Provider Physician Assistant Medical
DX: R19.7 Diarrhea, unspecified (principal); Z12.11 Encounter for screening for malignant neoplasm of colon; Z76.0 Encounter for issue of repeat prescription

== ENCOUNTER 2024-10-21 13:20 | Outpatient (REF) | payer OTHER, SELFPAY | END 2024-10-21 13:21 | disposition home or self-care (01) | LOC: HO.LNP 13:20 | PROVIDERS: Visit Provider Physician Assistant Medical | DX: R19.7 Diarrhea, unspecified (principal) | CPT/HCPCS: 87015; 87207; 87329 ==

== ENCOUNTER 2024-10-23 11:12 | Outpatient (REF) | payer OTHER, SELFPAY ==
[2024-10-23 12:00] LABS: Leukocytes Stool Qualitative NEGATIVE (NEGATIVE)
[2024-10-23 12:39] LABS: CDiff Gene PCR NEGATIVE (Negative)
== END 2024-10-23 11:13 | disposition home or self-care (01) ==
LOC: HO.LNP 11:12
PROVIDERS: Visit Provider Physician Assistant Medical
DX: R19.7 Diarrhea, unspecified (principal); R10.9 Unspecified abdominal pain
CPT/HCPCS: 87338; 87493; 89055